=== PATIENT | female | born 1945 | race Hispanic/Latino ===

== ENCOUNTER 2016-09-12 11:11 | Outpatient (CLI) | payer MEDICARE ==
--- NOTE | 2016-09-12 12:00 | Cat Scan Report ---
CT ABDOMEN AND PELVIS WITHOUT CONTRAST INDICATION: Urinary tract infection. Calculus of kidney. COMPARISON: 03/15/2016 FINDINGS: Noncontrast abdomen and pelvis CT performed. LUNG BASES: Stable, normal heart size with silhouette exaggerated due to prominent pericardial fat pad. No effusions. Right hemidiaphragm mildly elevated. Nonspecific distal esophageal wall prominence/thickening, not excluded for gastroesophageal reflux and/or hiatal hernia, amongst others. ABDOMEN: Please note that sensitivity to detect small visceral lesions is limited due to the absence of intravenous or oral contrast. Grossly unremarkable unenhanced liver, spleen, pancreas, adrenals, nonaneurysmal abdominal aorta and IVC. Gallbladder again suboptimally distended and assessed. Motion and extrinsic artifacts limit exam. Nonhydronephrotic kidneys with small bilateral renal calculi inferiorly again seen. No ascites or size significant adenopathy. Nonopacified GI tract evaluation limited, though grossly nonobstructive. Normal appendix. Colonic and rectosigmoid stool/possible constipation. Tiny fat-containing umbilical hernia with a transverse neck of 5 mm. PELVIS: Right adnexal/ovarian simple cyst again seen measuring 5.6 cm as also a 1.3 cm calcified fibroid. Non-opacified urinary bladder and left adnexa/ovary within normal limits. Rectosigmoid stool. No free fluid or significant adenopathy. Multilevel lower thoracic and upper lumbar degenerative changes, including spurring and disc degeneration/vacuum phenomenon again noted. Old healed bilateral lower rib fractures. Lower lumbar facet arthropathy. Bony demineralization. CONCLUSION: No acute CT abnormality or significant interval change with various incidental findings, including nonobstructing bilateral nephrolithiasis, right ovarian cyst, fibroid, distal esophageal prominence/thickening, bony degenerative changes and possible constipation, amongst others, as described. Please correlate. Thank you for the opportunity to participate in this patient's care.
== END 2016-09-12 11:12 | disposition home or self-care (01) ==
LOC: CT 11:11
PROVIDERS: ATTEND Urology
DX: N20.0 Calculus of kidney (principal); N39.0 Urinary tract infection, site not specified; D25.9 Leiomyoma of uterus, unspecified; K42.9 Umbilical hernia without obstruction or gangrene; N83.201 Unspecified ovarian cyst, right side; K82.8 Other specified diseases of gallbladder; J98.6 Disorders of diaphragm; M47.895 Other spondylosis, thoracolumbar region; M12.88 Other specific arthropathies, not elsewhere classified, other specified site; S22.43XD Multiple fractures of ribs, bilateral, subsequent encounter for fracture with routine healing; X58.XXXD Exposure to other specified factors, subsequent encounter
CPT/HCPCS: 74176